=== PATIENT | female | born 1935 | race Caucasian/White ===

== ENCOUNTER 2017-08-19 00:40 | Inpatient (IN) | payer MEDICARE, OTHER ==
[~2017-08-19] VITALS: Ht 162.6 cm; Wt 56.5 kg
[2017-08-19] MEDS ORDERED: MORPHINE SULFATE 4 MG/ML, 1ML ONE ×2 (00:55→01:40)
[2017-08-19] MEDS ORDERED: ONDANSETRON 2MG/ML, 2ML ONE (00:55)
[2017-08-19] MEDS ORDERED: ONDANSETRON 2MG/ML, 2ML IVPush ONE (01:00)
[2017-08-19] MEDS ORDERED: SODIUM CHLORIDE FLUSH 10ML SYR IVF ONE (01:00)
[2017-08-19] MEDS: MORPHINE SULFATE 4 MG/ML, 1ML IVPush PRN ×2 (01:00→01:43)
[2017-08-19 01:48] LABS: HEMATOCRIT 44.3 % (34.6-47.8); WHITE BLOOD COUNT 10.2 x10^3/uL (3.4-10)
[2017-08-19 01:56] LABS: ASPARTATE AMINO TRANSFERASE 17 U/L (15-37); BLOOD UREA NITROGEN 13 mg/dL (7-18)
[2017-08-19 02:00] LABS: IS PT STATUS REG ER OR PRE ER? YES
[2017-08-19] MEDS ORDERED: OMNIPAQUE 350 MG/ML, 100ML BOTTLE ONE (02:49)
[2017-08-19] MEDS ORDERED: ONDANSETRON 2MG/ML, 2ML IVPush PRN (03:30)
[2017-08-19] MEDS ORDERED: SODIUM CHLORIDE 0.9% 1,000ML IVBOLUS ONE (03:30)
[2017-08-19 04:43] VITALS: BP 162/91
[2017-08-19] MEDS ORDERED: PNEUMOCOCCAL 23 VACCINE IM-VACC ONE (05:00)
[2017-08-19] MEDS: ENOXAPARIN 40 MG/0.4 ML SQ SCH (07:49)
[2017-08-19] MEDS: PANTOPRAZOLE 40 MG IV IVPush SCH (08:28)
[2017-08-19 08:54] VITALS: BP 138/79
[2017-08-19] MEDS: LACTULOSE 10 GM/15 ML UDC PO SCH ×2 (09:57→20:59)
[2017-08-19] MEDS: SODIUM CHLORIDE FLUSH 10ML SYR IVF SCH ×2 (09:57→20:58)
[2017-08-19] MEDS ORDERED: MAGNESIUM CITRATE 300ML ORAL SOL PO PRN (11:30)
[2017-08-19] MEDS ORDERED: GLYCERIN ADULT SUPP PR ONE (11:30)
[2017-08-19] MEDS ORDERED: SODIUM CHLORIDE 0.9% 1,000 ML IV SCH (13:00)
[2017-08-19] MEDS: ACETAMINOPHEN 325 MG TABLET PO PRN (14:20)
[2017-08-19 14:48] VITALS: BP 155/77
[2017-08-19 20:02] VITALS: BP 135/74
[2017-08-20 04:05] VITALS: BP 154/85
[2017-08-20] MEDS: ENOXAPARIN 40 MG/0.4 ML SQ SCH (06:00)
[2017-08-20 07:06] LABS: HEMATOCRIT 42.7 % (34.6-47.8); HEMOGLOBIN 14.7 g/dL (11.7-16.4); WHITE BLOOD COUNT 10.3 x10^3/uL (3.4-10)
[2017-08-20 07:17] LABS: BLOOD UREA NITROGEN 7 mg/dL (7-18)
[2017-08-20] MEDS: PANTOPRAZOLE 40 MG IV IVPush SCH (07:19)
[2017-08-20] MEDS: ACETAMINOPHEN 325 MG TABLET PO PRN (07:19)
[2017-08-20] MEDS: LACTULOSE 10 GM/15 ML UDC PO SCH ×2 (07:20→21:00)
[2017-08-20] MEDS: SODIUM CHLORIDE FLUSH 10ML SYR IVF SCH ×2 (07:20→21:12)
[2017-08-20 07:47] VITALS: BP 165/96
[2017-08-20] MEDS ORDERED: HYDROcodone/APAP 5/325 TABLET PO ONE (09:30)
[2017-08-20] MEDS ORDERED: HYDROcodone/APAP 5/325 TABLET ONE (09:33)
[2017-08-20 09:39] VITALS: BP 135/74
[2017-08-20] MEDS ORDERED: MAALOX/HYOSCYAMINE/LIDOCAINE 45 ML BTL PO ONE (11:00)
[2017-08-20 11:41] LABS: IS PT STATUS REG ER OR PRE ER? NO
[2017-08-20 13:41] VITALS: BP 143/83
[2017-08-20] MEDS: KETOROLAC 30 MG/1 ML IVPush PRN (17:52)
[2017-08-20 20:13] VITALS: BP 150/90
[2017-08-21 03:04] VITALS: BP 162/88
[2017-08-21] MEDS: ENOXAPARIN 40 MG/0.4 ML SQ SCH (06:00)
[2017-08-21 06:45] VITALS: BP 167/91
[2017-08-21] MEDS: KETOROLAC 30 MG/1 ML IVPush PRN (07:24)
[2017-08-21] MEDS: SODIUM CHLORIDE FLUSH 10ML SYR IVF SCH (07:56)
[2017-08-21] MEDS: PANTOPRAZOLE 40 MG IV IVPush SCH (07:56)
[2017-08-21] MEDS: LACTULOSE 10 GM/15 ML UDC PO SCH (11:46)
[2017-08-21 15:57] VITALS: BP 149/82
[2017-08-21] MEDS ORDERED: LOSA25TA5 PO (16:28)
[2017-08-21] MEDS ORDERED: TRAM50TA2 PO (16:28)
[2017-08-21] MEDS ORDERED: SENN1TAB7 PO (16:28)
== END 2017-08-21 18:59 | disposition home health service (06) | DRG 543 ==
LOC: ED 01:34 → EDIP 03:16 → INTOOBSV 03:16 → 4NOR 04:05 → OBSVTOIN 08-20 17:26
PROVIDERS: ADMIT Internal Medicine; ATTEND Internal Medicine
PROC: 0T9B70Z Drainage of Bladder with Drainage Device, Via Natural or Artificial Opening (ICD-10-PCS; principal; 2017-08-20)
DX: M48.54XA Collapsed vertebra, not elsewhere classified, thoracic region, initial encounter for fracture (principal); E87.1 Hypo-osmolality and hyponatremia; K76.0 Fatty (change of) liver, not elsewhere classified; E86.0 Dehydration; R10.13 Epigastric pain; D72.829 Elevated white blood cell count, unspecified; I10 Essential (primary) hypertension; K59.00 Constipation, unspecified
CPT/HCPCS: 36415; 70450; 72072; 72110; 74177; 76700; 80048; 80053; 81003; 83690; 84484; 85025; 93005; G0378; J1650; J1885; J2405; Q9967; C9113; J7030